=== PATIENT | female | born 1980 | race African-American/Black ===

== ENCOUNTER → 2020-08-14 13:45 | Outpatient (CLI) | payer MEDICAID ==
[2015-08-10 11:42] VITALS: BMI 24.0
[~2020-08-14 13:45] MED LIST: LISINOPRIL5 MG PO
== END | disposition home or self-care (01) ==
LOC: D.MAMMO 13:45
PROVIDERS: ATTEND Student in an Organized Health Care Education/Training Program
DX: Z12.31 Encounter for screening mammogram for malignant neoplasm of breast (principal); Z01.419 Encounter for gynecological examination (general) (routine) without abnormal findings